=== PATIENT | female | born 1980 | race Caucasian/White ===

== ENCOUNTER 2016-11-30 18:24 | Emergency (ER) | payer OTHER ==
--- NOTE | 2016-11-30 19:39 | UC ---
Renetta Schuster Alok, scribed for Adria Austin MD on 11/30/16 at 1934 . Throat Pain/Nasal Sterling HPI - HPI Summary HPI Summary: 36F presents to the [facility] for sore throat, NAVA, and fatigue since 2 days ago. Pt also notes fever this morning. Pt states her two kids at home were dx with strep yesterday. Pt denies ear pain. PMHx includes h/o strep which the patient states feels similar to her symptoms now Pt has NKDA. - History of Current Complaint Chief Complaint: UCGeneralIllness Stated Complaint: SORE THROAT Time Seen by Provider: 11/30/16 19:28 Hx Obtained From: Patient Onset/Duration: Lasting Days, Still Present Severity: Moderate Associated Signs & Symptoms: Positive: Fever - Allergies/Home Medications Allergies/Adverse Reactions: Allergies Allergy/AdvReac Type Severity Reaction Status Date / Time No Known Allergies Allergy Verified 11/30/16 18:26 PMH/Surg Hx/FS Hx/Imm Hx - Surgical History Surgical History: None - Family History Known Family History: Positive: Hypertension - Social History Lives: With Family Alcohol Use: Occasionally Substance Use Type: None Smoking Status (MU): Never Smoked Tobacco Review of Systems Constitutional: Fever, Fatigue ENT: Sore Throat Neurological: Headache All Other Systems Reviewed And Are Negative: Yes Physical Exam Triage Information Reviewed: Yes Appearance: No Pain Distress, Ill-Appearing - mildly Vital Signs: Initial Vital Signs Temp 98 F 11/30/16 18:27 Pulse 73 11/30/16 18:27 Resp 18 11/30/16 18:27 Pulse Ox 100 11/30/16 18:27 Vital Signs Reviewed: Yes Eyes: Positive: Other: - EOMI, BENJAMÍN ENT: Positive: Other: - Mild posterior pharyngeal erythema Neck: Positive: Supple, Nontender, Other: - Mild cervical lymphadenopathy Respiratory: Positive: Lungs clear, Normal breath sounds Cardiovascular: Positive: RRR Abdomen Description: Positive: Nontender, Soft Bowel Sounds: Positive: Present Musculoskeletal Exam: Normal Musculoskeletal: Positive: Strength Intact, ROM Intact Neurological Exam: Normal Neurological: Positive: Alert, Other: - Sensory/Motor intact Psychological: Positive: Other: - affect/mood appropriate Throat Pain/Nasal Course/Dx - Course Course Of Treatment: Patient medications reviewed this visit. PATIENT HAS 2 CHILDREN WITH STREP DX YESTERDAY. DISCUSSED TESTING VERSES TREATMENT. PATIENT PREFERS TREATMENT. - Differential Dx/Diagnosis Provider Diagnoses: PHARYNGITIS Discharge - Discharge Plan Condition: Stable Disposition: HOME Prescriptions: Amoxicillin PO (*) [Amoxicillin 875 MG (*)] 875 mg PO BID #20 tab Patient Education Materials: Pharyngitis (ED) Referrals: Heber Jones MD [Primary Care Provider] - Additional Instructions: FOLLOW UP WITH YOUR DOCTOR. GET RECHECKED FOR ANY WORSENING OF YOUR CONDITION OR QUESTIONS OR CONCERNS. The documentation as recorded by the Renetta castillo Alok accurately reflects the service I personally performed and the decisions made by me, Adria Austin MD.
== END 2016-11-30 19:49 | disposition home or self-care (01) ==
LOC: UCEAST 18:24
DX: J02.9 Acute pharyngitis, unspecified (principal)
CPT/HCPCS: 99212; G0463

== ENCOUNTER 2017-06-06 08:21 | Emergency (ER) | payer OTHER ==
[2017-06-06 08:41] VITALS: BP 126/87
--- NOTE | 2017-06-06 09:21 | UC ---
Respiratory Complaint HPI - History of Current Complaint Chief Complaint: UCGeneralIllness Stated Complaint: FEVER,COUGH Time Seen by Provider: 06/06/17 08:54 Hx Obtained From: Patient Hx Last Menstrual Period: States has IUD - no period Onset/Duration: Gradual Onset, Lasting Days - 2 days, Still Present Timing: Constant Severity Initially: Mild Severity Currently: Moderate Pain Intensity: 4 Pain Scale Used: 0-10 Numeric Character: Cough: Productive, Sputum Description: - green, brown Aggravating Factors: Recumbent Position Alleviating Factors: OTC Meds Associated Signs And Symptoms: Positive: Fever, Chills, Nasal Congestion - Risk Factors Pulmonary Embolism Risk Factors: Negative Cardiac Risk Factors: Negative Pseudomonas Risk Factors: Negative Tuberculosis Risk Factors: Negative - Allergies/Home Medications Allergies/Adverse Reactions: Allergies Allergy/AdvReac Type Severity Reaction Status Date / Time No Known Allergies Allergy Verified 06/06/17 08:35 Home Medications: Home Medications NK [No Home Medications Reported] 06/06/17 [History Confirmed 06/06/17] PMH/Surg Hx/FS Hx/Imm Hx Previously Healthy: Yes - Pt denies PMHX - Surgical History Surgical History: None - Family History Known Family History: Positive: Cardiac Disease, Hypertension - Social History Occupation: Employed Full-time Lives: With Family Alcohol Use: Occasionally Substance Use Type: None Smoking Status (MU): Never Smoked Tobacco Review of Systems Constitutional: Fever, Chills, Other - body aches Eyes: Negative ENT: Sore Throat, Nasal Discharge, Sinus Congestion Respiratory: Cough - productive with geen and brown phelgm Cardiovascular: Negative Gastrointestinal: Negative Genitourinary: Negative Motor: Negative Neurovascular: Negative Musculoskeletal: Negative Neurological: Headache Psychological: Negative Is Patient Immunocompromised?: No All Other Systems Reviewed And Are Negative: Yes Physical Exam Triage Information Reviewed: Yes Vital Signs: Initial Vital Signs Temp 99.2 F 06/06/17 08:36 Pulse 76 06/06/17 08:36 Resp 18 06/06/17 08:36 BP 126/87 06/06/17 08:36 Pulse Ox 100 06/06/17 08:36 - Additional Comments VITAL SIGNS: Reviewed. GENERAL: Patient is a well developed and nourished female who is sitting comfortable in the examining table. Patient is not in any acute respiratory distress. HEAD AND FACE: No signs of trauma. No ecchymosis, hematomas or skull depressions. No sinus tenderness. EYES: PERRLA, EOMI x 2, No injected conjunctiva, no nystagmus. No photophobia. EARS: Hearing grossly intact. Ear canals and tympanic membranes are within normal limits. MOUTH: Positive pharynx with erythema, exudates, palatal petechiae. B/L tonsillar enlargement with exudate. Uvula in midline. NECK: Supple, trachea is midline, Positive anterior cervical lymphadenopathy, no JVD, no carotid bruit, no c-spine tenderness, neck with full ROM. No meningeal signs, no Kernig's or brudzinskis signs. CHEST: Symmetric, no tenderness at palpation LUNGS: Clear to auscultation bilaterally. No wheezing or crackles. CVS: Regular rate and rhythm, S1 and S2 present, no murmurs or gallops appreciated. ABDOMEN: Soft, non-tender. No signs of distention. No rebound no guarding, and no masses palpated. Bowel sounds are normal. EXTREMITIES: FROM in all major joints, no edema, no cyanosis or clubbing. NEURO: Alert and oriented x 3. No acute neurological deficits. Speech is normal and follows commands. SKIN: Dry and warm UC Diagnostic Evaluation - Laboratory O2 Sat by Pulse Oximetry: 100 Discharge - Discharge Plan Referrals: Heber Jones MD [Primary Care Provider] -
== END 2017-06-06 10:37 | disposition home or self-care (01) ==
LOC: UCEAST 08:21
DX: R50.9 Fever, unspecified (principal); R05 Cough
CPT/HCPCS: 87502; 99212; G0463